=== PATIENT | female | born 1955 | race Caucasian/White ===

== ENCOUNTER 2016-09-19 08:10 | Day surgery (SDC) | payer MEDICARE, BC ==
[2016-09-18 15:13] LABS: BASOPHILS 0.2 % (0.0-2.0); EOSINOPHILS 2.2 % (0-7); HEMOGLOBIN 15.6 g/dL (12-16); IMMATURE GRANULOCYTES 0.2 % (0-5); LYMPHOCYTES 17.3 % (15-50); MCH 30.3 pg (26.0-34.0); MCHC 33.9 g/dL (31.0-37.0); MCV 89.3 fL (80.0-100.0); MEAN PLATELET VOLUME 10.8 fL (7.4-10.4); MONOCYTES 7.4 % (2-11); NEUTROPHILS 72.7 % (40-80); PLATELET COUNT 191 10x3/uL (130-400); RBC 5.15 10x6/uL (4.00-5.40); RDW 12.6 % (11.5-14.5); WBC 10.4 10x3/uL (4.8-10.8)
[2016-09-18 15:24] LABS: APPEARANCE CLEAR (CLEAR); BILIRUBIN NEGATIVE (NEGATIVE); COLOR YELLOW (YELLOW); GLUCOSE 1000 mg/dL (NEGATIVE); KETONE NEGATIVE (NEGATIVE); LEUKOCYTE ESTERASE 1+ (NEGATIVE); NITRITE NEGATIVE (NEGATIVE); PROTEIN NEGATIVE (NEGATIVE); UROBILINOGEN NORMAL (NORMAL)
[2016-09-18 15:25] LABS: BACTERIA FEW /hpf (NONE SEEN); EPITHELIAL CELLS 0-5 /hpf (0-5); MUCUS <1+ /lpf (NONE SEEN); RED CELLS - URINE 0-5 /hpf (0-5)
[2016-09-18 15:26] LABS: ANION GAP 13.2 mmol/L (8-16); CALCIUM 9.6 mg/dL (8.5-10.1); CREATININE - SERUM 0.9 mg/dL (0.6-1.3); POTASSIUM - SERUM 3.2 mmol/L (3.5-5.1)
[~2016-09-19] VITALS: Ht 162.6 cm; Wt 90.7 kg
[~2016-09-19 08:10] MED LIST: DYAZIDE 37.5/251 CAP PO; FARXIGA TAB 5MG PO; LANTUS INSULIN10 ML SC; NEURONTIN800 MG PO; NORCO 7.5/325 T1 TA1 PO; NOVOLOG100 U/M1 SC; PLAQUENIL200 MG PO; TOPROL XL25 MG PO
[2016-09-19] MEDS ORDERED: FOLIC ACID1 MG PO (09:54)
[2016-09-19] MEDS ORDERED: PRILOSEC10 M1 PO (09:54)
[2016-09-19 09:56] VITALS: BP 148/70; Ht 162.6 cm; Wt 90.7 kg
--- NOTE | 2016-09-19 11:07 | NUR ---
1107 MORE RELAXED AND RESTING AFTER VALIUM PAIN 3.
--- NOTE | 2016-09-19 19:15 | NUR ---
1415 BACK FROM LUMBAR LAMINECTOMY. LOWER BACK DRESSING SMALL AMT BLOOD NOTED. PAIN A 7. O2 TO 2 L N/C. RESP NONLABORED. DENIES NAUSEA.
--- NOTE | 2016-09-19 19:18 | NUR ---
[address] COURTNEY AND EUSEBIO CASTANEDA CALLED BACK. DISCUSSED ORDER FOR ADMIT STATUS AND STATED PATIENT NEEDS TO STAY AWHILE AND BE PAIN TOLERABLE AND WALK SOME. REPORTED DRESSING TO BACK BLOODY SPOT AND RASH ON FACE. ORDERS RECEIVED.
--- NOTE | 2016-09-19 19:20 | NUR ---
1502 MEDICATED WITH PAIN AND NAUSEA MED.
--- NOTE | 2016-09-19 19:26 | NUR ---
1600 UP AND WALKED WITH ASSISTANCE.
--- NOTE | 2016-09-19 19:34 | NUR ---
1715 UP AND WALKED.
--- NOTE | 2016-09-19 19:35 | NUR ---
1745 IV DCD CATHETER INTACT, WENT OVER DISCHARGE INSTRUCTIONS. PATIENT WANTING TO GO HOME. NAUSEA OKAY HAS SCOPALAMINE PATCH AND PAIN A 4. HAS LORATABS AT HOME. 1800 TO HOME VIA W/C WITH SPOUSE.
--- NOTE | 2016-09-19 19:36 | NUR ---
1800 TO HOME ASSISTED TO CAR AND LYING DOWN IN BACK OF CAR.
--- NOTE | 2016-09-22 08:30 | HP ---
PATIENT: MARLIN AUGUSTE MEDICAL RECORD: [id number] ACCOUNT: [id number] LOCATION:[facility] : 57 ADMISSION DATE: 09/19/16 HISTORY AND PHYSICAL EXAMINATION CHIEF COMPLAINT: Back pain. HISTORY OF PRESENT ILLNESS: This is a pleasant 61-year-old female who presented to our office with back pain, radicular, into her right leg with acute sciatica. She has been seeing pain management in [place] and has had radiofrequency. She has ____ and she has had this for over 3 years. Pain has worsened and so they have sent her back to Dr. Kam for further evaluation and she is now being recommended for surgery. PAST MEDICAL HISTORY: Significant for diabetes and high blood pressure. PAST SURGICAL HISTORY: In 2001, she had L3-L4 foraminotomy by Dr. Kam. FAMILY HISTORY: Her father at the age of 81 from heart attack. Her mother is still living. SOCIAL HISTORY: She is . FAMILY DOCTOR: Dr. Jakob Inman who is her oncologist. She also has RA. ____. ALLERGIES: None. CURRENT MEDICATIONS: Lantus, NovoLog, Prilosec, Toprol, Dyazide, Neurontin, folic acid, Plaquenil, Neurontin and hydrocodone. REVIEW OF SYSTEMS: She denies any recent chest pain, shortness of breath or weight changes. She does have chronic pain from her RA, which is fairly well managed. PHYSICAL EXAMINATION: GENERAL: This is an alert, oriented female who is of normal mood. HEENT: Normocephalic. Pupils are equal and reactive to light. CHEST: Clear to auscultation. HEART: S1 and S2. ABDOMEN: Soft, bowel sounds present. EXTREMITIES: She has decreased range of motion in her low back. She has a positive straight leg raise on the right. IMPRESSION: Lumbar canal stenosis at L3-L4, L4-L5 on the right. PLAN: L3-L4, L4-L5 right laminectomy and foraminotomy. Note, she has an immune disorder. The risks and benefits of surgery have been explained to her in detail. Risks include bleeding, failure to relieve symptoms, problems with anesthesia and . Time was allowed for questions, questions were answered. The patient wishes to proceed with surgery. TRANSINT:[id number] Voice Confirmation ID: [id number] DOCUMENT ID: [id number] HISTORY AND PHYSICAL [id number] MRALIN AUGUSTE Dictated By: EUSEBIO CASTANEDA I have interviewed/examined the above patient and agree with these documented findings. JOCELYN KAM MD at 0830 at 1224 CC: [id number] DICTATION DATE: 09/18/16 162 ACCOUNT RELATIONSHIP MANAGER: 09/18/16 1635 [facility] 09/19/16 [facility] [address] [id number]
--- NOTE | 2016-11-17 10:57 | OP ---
PATIENT NAME: MARLIN AUGUSTE MEDICAL RECORD: [id number] :57 LOCATION:[facility] ADMISSION DATE: SURGEON: JOCELYN KAM MD DATE OF OPERATION: 09/19/2016 DIAGNOSIS: Lumbar nerve root compression the L3-L4, L4_L5 on the right side. PROCEDURE: L3-L4, L4-L5 right laminotomy and foraminotomy. ESTIMATED BLOOD LOSS: 50 cc. SURGEON: Jocelyn Kam MD FRAUD PREVENTION ANALYST: James Vincent MD SUMMARY: The patient was taken to the operating room and after an adequate level of general anesthetic, was prepped and draped in the usual aseptic manner on a Jeremias frame. A C-arm image was made to localize the incision was made to the right of L4. A 10-blade was used to make a skin incision and the incision in the fascia and then a matrix operating channel was introduced over assistant federal public defender dilators down to the interlaminar space at L3-L4 using 1.5 cm operating channel 5 cm in length. The medial aspect of the facet joint on the right at L3-L4 was then removed with the [employer] drill and Cloward and Kerrison punch were used to enlarge this laminotomy created. Completing this, the dissection was carried out beneath the nerve root to be sure no disc fragment was present and none, therefore the wound was irrigated and the matrix tube was redirected down to the L4-L5 interlaminar space using the C-arm fluoroscope to guide this was changed in position. Following this, the medial aspect of the facet joint at L4-L5 was removed on the right and a Cloward and Kerrison punch were used to enlarge the laminotomy created. Ligamentum flavum was split with a 15 blade and removed exposing the neural elements and a foraminotomy was performed thoroughly decompressing the exiting nerve. The wound was then irrigated with an antibiotic solution and inspection was carried out to be sure that no further compression was present on the neural elements. This being the case, the wound was closed with 2-0 Dexon on the fascia, 3-0 Dexon on subcutaneous tissue and a subcuticular stitch using a Dexon. TRANSINT:[id number] Voice Confirmation ID: [id number] DOCUMENT ID: [id number] JOCELYN KAM MD at 1055 CC: [id number] DICTATION DATE: 09/23/16 0835 MUSICAL INSTRUMENT MECHANIC: 09/23/16 0851 [facility] 09/19/16 [facility] [address] [place] [address]
== END 2016-09-19 18:00 | disposition home or self-care (01) ==
LOC: D.OPS 08:10 → D.PAN 11:00 → D.OPS 18:00
PROVIDERS: Neurological Surgery
DX: M54.16 Radiculopathy, lumbar region (principal); M54.41 Lumbago with sciatica, right side; E11.9 Type 2 diabetes mellitus without complications; I10 Essential (primary) hypertension; Z79.4 Long term (current) use of insulin; Z79.891 Long term (current) use of opiate analgesic; Z79.899 Other long term (current) drug therapy